=== PATIENT | male | born 1985 | race Caucasian/White ===

== ENCOUNTER → 2024-06-21 08:55 | Outpatient (REF) | payer OTHER, SELFPAY ==
[2024-06-21 10:16] LABS: % Basophils 0.7 % (0-2); % Eosinophils 1.6 % (0-6); % Lymphocytes 33.9 % (20.5-51.1); % Monocytes 8.9 % (1.7-9.3); % Neutrophils 54.9 % (42.2-75.2); Absolute Eosinophils 0.1 10^3/uL (0-0.7); Absolute Lymphocytes 1.5 10^3/uL (1.2-3.4); Absolute Monocytes 0.4 10^3/uL (0.1-0.6); Absolute Neutrophils 2.4 10^3/uL (1.4-6.5); Hematocrit 40.7 % (39.0-52.0); Mean Corp Hgb Conc. 34.4 g/dL (33.0-37.0); Mean Corpuscular Hgb 30.2 pg (27.0-31.0); Mean Corpuscular Volume 87.9 fL (80.0-94.0); Mean Platelet Volume 12.6 fL (7.4-10.4); Nucleated Red Blood Cells % 0 % (-); Platelet Count 196 10^3/uL (130-400); Red Blood Cell Count 4.63 10^6/uL (4.70-6.10); Red Cell Dist. Width 13.2 % (11.5-14.5); White Blood Cell Count 4.4 10^3/uL (4.8-10.8)
[2024-06-21 10:52] LABS: ALT (SGPT) 27 U/L (0-50); AST (SGOT) 34 U/L (17-59); Albumin 4.7 g/dl (3.5-5.0); Alkaline Phosphatase 44 U/L (38-126); Blood Urea Nitrogen 21 mg/dl (9-20); Calcium 9.5 mg/dl (8.4-10.2); Carbon Dioxide 30 mmol/L (22-30); Chloride 102 mmol/L (98-107); Glucose 86 mg/dl (70-99); HDL Cholesterol 62 mg/dl; LDL Cholesterol, Calculated 104 mg/dl; Potassium 4.4 mmol/L (3.5-5.1); Sodium 143 mmol/L (135-145); Total Bilirubin 0.8 mg/dl (0.2-1.3); Total Cholesterol 177 mg/dl (50-199); Total Protein 7.4 g/dl (6.3-8.2); Triglyceride 56 mg/dl (10-149); Very Low Density Lipoprotein 11 mg/dl (0-30); eGFR > 60.00
[2024-06-21 11:20] LABS: TSH Reflex To Free T4 2.04 uIU/ml (0.47-4.68)
[2024-06-21 15:09] LABS: Lyme Antibody Screen, EIA Negative (Negative)
[2024-06-24 02:01] LABS: HCV Quant by NAAT IU/mL Not Detected; HCV Quant by NAAT Interp Not Detected (Not Detected); HCV Quant by NAAT Log IU/mL Not Detected log IU/mL
== END ==
LOC: RAD 08:55
PROVIDERS: ATTENDING PHYSICIAN Internal Medicine
DX: M25.512 Pain in left shoulder (principal); Z00.00 Encounter for general adult medical examination without abnormal findings; G89.29 Other chronic pain; Z11.59 Encounter for screening for other viral diseases; M25.562 Pain in left knee
CPT/HCPCS: 36415; 73030; 80053; 80061; 84443; 85025; 86618; 87522

== ENCOUNTER → 2024-08-02 13:21 | Outpatient (REF) | payer OTHER, SELFPAY | LOC: MRI 3T 13:21 | PROVIDERS: ATTENDING PHYSICIAN Student in an Organized Health Care Education/Training Program; FAMILY PHYSICIAN Internal Medicine | DX: M25.512 Pain in left shoulder (principal) | CPT/HCPCS: 23350; 73040; 73222 ==

== ENCOUNTER 2024-12-19 06:26 | Day surgery (SDC) | payer OTHER, SELFPAY ==
[2024-12-19] VITALS (9 sets, daily range): BP systolic 89–146; BP diastolic 49–71; BMI 26.5
[2024-12-19] MEDS: TYLENOL 1000 MG PO (13:03)
[2024-12-19] MEDS: NORMOSOL-R/PLASMALYTE-A 1000 IV (13:05)
--- NOTE | 2024-12-19 20:24 | W.IMMPOSTOP ---
Surgical Immed Post Op Note
-
Primary Surgeon: Keny Horn MD
Assisting Surgeon:
Pre-op Diagnosis: left shoulder anterior and superior labral tears, partial rotator cuff tear
Post-op Diagnosis: left shoulder anterior and superior labral tears, partial rotator cuff tear, glenohumeral osteoarthritis
Procedure Performed: arthroscopic left shoulder anterior labral debridement, superior labral repair, rotator cuff repair, retained foreign material
Anesthesia Type: general
Specimen / Cultures: none
Estimated Blood Loss: 10mL
Complications: none apparent
Operative Findings: high grade partial thickness supraspinatus tear, anterior labral degeneration with retained foreign material, disrupted biceps anchor, intact biceps tendon, grade 3 glenoid and grade 2 humeral chondrosis
Implants: Arthrex 1.8mm Knotless FiberTak anchor; 4.75mm Biocomposite Knotless SwiveLock anchor
Operative dictation #: [id number]
== END 2024-12-19 18:58 | disposition home or self-care (01) ==
LOC: SDS 06:26
PROVIDERS: ATTENDING PHYSICIAN Student in an Organized Health Care Education/Training Program; FAMILY PHYSICIAN Internal Medicine
DX: S46.012A Strain of muscle(s) and tendon(s) of the rotator cuff of left shoulder, initial encounter (principal); S43.432A Superior glenoid labrum lesion of left shoulder, initial encounter; X58.XXXA Exposure to other specified factors, initial encounter
CPT/HCPCS: 29827; C1713